=== PATIENT | female | born 1975 | race Caucasian/White ===

== ENCOUNTER 2017-10-01 14:45 | Emergency (ER) | payer BC | END 2017-10-01 16:26 | disposition home or self-care (01) | LOC: E/R 14:45 | DX: J02.9 Acute pharyngitis, unspecified (principal) | CPT/HCPCS: 99283 ==

== ENCOUNTER 2017-10-28 08:34 | Emergency (ER) | payer BC ==
[2017-10-28] MEDS: ACETAMINOPHEN 500 MG TAB PO (08:58)
[2017-10-28] MEDS: NAPROXEN 500 MG TAB PO (09:02)
== END 2017-10-28 10:29 | disposition home or self-care (01) ==
LOC: FTE 08:34
DX: J06.9 Acute upper respiratory infection, unspecified (principal)
CPT/HCPCS: 71045; 99283-25

== ENCOUNTER 2017-12-17 08:41 | Emergency (ER) | payer BC ==
[2017-12-17] MEDS: ACETAMINOPHEN 325 MG TAB PO (09:05)
[2017-12-17 09:09] LABS: URINE PH (Dip) POC 5.5 (5.0-8.5)
[2017-12-17 09:09] LABS: URINE BLOOD (Dip) POC 2+ (NEGATIVE); URINE GLUCOSE (Dip) POC Negative (NEGATIVE); URINE KETONES (Dip) POC Negative (NEGATIVE); URINE LEUKOCYTE EST (Dip) POC 1+ (NEGATIVE); URINE NITRITE (Dip) POC Negative (NEGATIVE); URINE TOTAL PROTEIN POC Negative (NEGATIVE)
== END 2017-12-17 09:50 | disposition home or self-care (01) ==
LOC: FTE 08:41
DX: N39.0 Urinary tract infection, site not specified (principal)
CPT/HCPCS: 81003; 81025; 99283

== ENCOUNTER 2018-06-16 14:07 | Emergency (ER) | payer BC ==
[2018-06-16] MEDS: IBUPROFEN 600 MG TAB PO (15:13)
== END 2018-06-16 16:14 | disposition home or self-care (01) ==
LOC: FTE 14:07
DX: S99.911A Unspecified injury of right ankle, initial encounter (principal); E11.9 Type 2 diabetes mellitus without complications; W18.30XA Fall on same level, unspecified, initial encounter; Y92.9 Unspecified place or not applicable
CPT/HCPCS: 73610; 73610-RT; 99283-25

== ENCOUNTER 2018-09-23 09:41 | Emergency (ER) | payer BC | END 2018-09-23 10:39 | disposition home or self-care (01) | LOC: FTE 09:41 | DX: J06.9 Acute upper respiratory infection, unspecified (principal); E11.9 Type 2 diabetes mellitus without complications | CPT/HCPCS: 99282 ==

== ENCOUNTER 2019-05-26 13:24 | Emergency (ER) | payer BC | END 2019-05-26 13:57 | disposition home or self-care (01) | LOC: E/R 13:57 | DX: H00.025 Hordeolum internum left lower eyelid (principal) | CPT/HCPCS: 99283 ==